=== PATIENT | female | born 1955 | race Caucasian/White ===

== ENCOUNTER → 2021-12-20 | Outpatient (CLI) | payer OTHER | END | disposition home or self-care (01) | LOC: RAH 10:54 | PROVIDERS: ATTEND Internal Medicine | DX: M47.817 Spondylosis without myelopathy or radiculopathy, lumbosacral region (principal); M48.07 Spinal stenosis, lumbosacral region; M41.85 Other forms of scoliosis, thoracolumbar region; G89.29 Other chronic pain; M54.50 Low back pain, unspecified | CPT/HCPCS: 72148 ==

== ENCOUNTER → 2023-06-27 | Outpatient (CLI) | payer OTHER ==
[~2023-06-27] MED LIST: levothyroxine PO
== END | disposition home or self-care (01) ==
LOC: RAH 12:24
PROVIDERS: ATTEND Anesthesiology
DX: M47.26 Other spondylosis with radiculopathy, lumbar region (principal); K57.30 Diverticulosis of large intestine without perforation or abscess without bleeding; M48.07 Spinal stenosis, lumbosacral region; Z91.81 History of falling
CPT/HCPCS: 72148; 72192

== ENCOUNTER 2024-05-17 06:32 | Observation (INO) | payer OTHER ==
[2024-05-14 12:12] LABS: BASOPHILS # (AUTO) 0.05 K/uL (0.00-0.20); BASOPHILS % (AUTO) 0.8 % (0.0-5.0); EOSINOPHILS # (AUTO) 0.07 K/uL (0.00-0.70); EOSINOPHILS % (AUTO) 1.1 % (0.0-8.0); HEMATOCRIT 43.1 % (36-48); IMMATURE GRANULOCYTE ABSOLUTE 0.01 K/uL (0-1); LYMPHOCYTES # (AUTO) 1.5 K/uL (1.0-4.8); LYMPHOCYTES % (AUTO) 22.6 % (21.0-51.0); MEAN CORPUSCULAR HGB CONC 32.9 g/dL (32.0-36.0); MEAN CORPUSCULAR VOLUME 94.1 fL (79-99); MONOCYTES # (AUTO) 0.5 K/uL (0.1-1.0); MONOCYTES % (AUTO) 7.1 % (3.0-13.0); NEUTROPHILS # (AUTO) 4.4 K/uL (1.8-7.7); NEUTROPHILS % (AUTO) 68.2 % (40.0-77.0); PLATELET COUNT (AUTO) 274 K/uL (130-400); RED BLOOD CELL COUNT(AUTO) 4.58 MIL/uL (4.00-5.50); RED CELL DISTRIBUTION WIDTH 14.8 % (11.0-15.5); WHITE BLOOD COUNT (AUTO) 6.5 K/uL (4.8-10.8)
[2024-05-14 12:17] VITALS: BP 135/74; PULSE 71; RESP 15; TEMP 97.7
[2024-05-14 12:24] LABS: CREATININE 0.7 mg/dL (0.5-1.0); POTASSIUM 4.1 mmol/L (3.5-5.1)
[2024-05-14 12:34] LABS: INR <= 0.93 (0.85-1.15); PROTHROMBIN TIME 9.9 SEC (9.6-11.6)
[~2024-05-17] VITALS: Ht 167.6 cm; Wt 70.0 kg
[2024-05-17] VITALS (23 sets, daily range): BP systolic 98–137; BP diastolic 45–71; PULSE 54–93; RESP 12–22; TEMP 96.9–99.1; O2SAT 96–98
[2024-05-17] MEDS: LACTATED RINGERS 1000ML 1,000 ML IV ONE (06:12)
[2024-05-17] MEDS: CLINDAMYCIN IVPB 900MG/50ML 0 ML IV ONE (06:12)
[~2024-05-17 06:32] MED LIST changes: +LEVO100T4 PO; -levothyroxine PO
[2024-05-17] MEDS ORDERED: LIDOCAINE PF 100MG/5ML (2%) SYRINGE 5ML ONE (08:09)
[2024-05-17] MEDS ORDERED: MIDAZOLAM HCL 1 MG/ML 2ML VIAL ONE (08:11)
[2024-05-17] MEDS ORDERED: rocuRONium bROMide 10MG/1ML 5ML VL ONE (08:11)
[2024-05-17] MEDS ORDERED: proPOFol 10 MG/ML 20ML VIAL IV ONE (08:11)
[2024-05-17] MEDS ORDERED: FENTanyl CITRate PF 50 MCG/1 ML 2ML VIAL ONE (08:11)
[2024-05-17] MEDS ORDERED: phenylEPHRINE HCL 10 MG/ML 1ML VIAL IV ONE (08:12)
[2024-05-17] MEDS: ceFAZolin SODIUM 2 GM VIAL ONE (08:30)
[2024-05-17] MEDS ORDERED: GLYCOPYRROLATE 0.2 MG/ML 5 ML VIAL ONE (09:04)
[2024-05-17] MEDS ORDERED: NEOSTIGMINE METHYLSULFATE 1MG/ML IV ONE (09:04)
[2024-05-17] MEDS ORDERED: ROPivacaine 0.5% 5MG/ML 30ML ONE (09:04)
[2024-05-17] MEDS: ceFAZolin SODIUM 1 GM VIAL ONE (09:34)
[2024-05-17] MEDS ORDERED: TEMAZepam 15 MG CAPSULE PO PRN (12:00)
[2024-05-17] MEDS: 0.9%NACL 1000ML 1,000 ML IV SCH (12:00)
[2024-05-17] MEDS ORDERED: ketOROlac 30MG VIAL (30MG/ML) IV PRN (12:00)
[2024-05-17] MEDS ORDERED: DiphenhydrAMINE HCL 50 MG/ML VIAL IVP PRN (12:00)
[2024-05-17] MEDS: PSYLLIUM SEED 1 EACH PACKET PO SCH (12:00)
[2024-05-17] MEDS ORDERED: CALCIUM CARB 500MG PO PRN (12:00)
[2024-05-17] MEDS ORDERED: ceFAZolin SODIUM 2 GM VIAL IVP SCH (12:00)
[2024-05-17] MEDS ORDERED: FERROUS FUMARATE 324 MG TABLET PO PRN (12:00)
[2024-05-17] MEDS: 0.9%NACL 1000ML 1,000 ML IV ONE (13:05)
--- NOTE | 2024-05-17 13:10 | NUR ---
PATIENT ARRIVED TO UNIT FROM OR. NO S/S OF DISTRESS NOTED. PATIENT RESTING COMFORTABLY WITH MINIMAL PAIN. SPOUSE AT BEDSIDE. POST OP LEFT HIP BRACE IN PLACE. DRESSING TO LEFT HIP CLEAN AND INTACT. BED IN LOWEST POSITION AND CALL LIGHT IN REACH
[2024-05-17] MEDS: ceFAZolin SODIUM 2 GM VIAL IVP SCH (16:26)
[2024-05-17] MEDS: HYDROcodone/APAP 5/325 1 TAB TABLET PO PRN (18:40)
[2024-05-17] MEDS: FAMOTIDINE 20MG TAB PO SCH (21:00)
[2024-05-17] MEDS: CeleCOXib 200 MG CAP PO SCH (21:12)
[2024-05-18 03:55] VITALS: BP 99/57; PULSE 79; RESP 16; TEMP 98.7
[2024-05-18 04:14] LABS: HEMATOCRIT 32.5 % (36-48); MEAN CORPUSCULAR HEMOGLOBIN 31.9 pg (27.0-33.0); MEAN CORPUSCULAR HGB CONC 33.8 g/dL (32.0-36.0); MEAN CORPUSCULAR VOLUME 94.2 fL (79-99); RED BLOOD CELL COUNT(AUTO) 3.45 MIL/uL (4.00-5.50); RED CELL DISTRIBUTION WIDTH 14.9 % (11.0-15.5); WHITE BLOOD COUNT (AUTO) 10.5 K/uL (4.8-10.8)
[2024-05-18 04:35] LABS: CREATININE 0.8 mg/dL (0.5-1.0); POTASSIUM 3.7 mmol/L (3.5-5.1)
[2024-05-18 08:00] VITALS: BP 100/58; PULSE 72; RESP 16; TEMP 98.4; O2SAT 96
[2024-05-18] MEDS: polyETHYLene GLYCol 3350 17 GM POWD.PACK PO SCH (09:00)
[2024-05-18] MEDS ORDERED: HYDR-4060 PO (10:20)
[2024-05-18] MEDS ORDERED: NAPR-1192 PO (10:20)
--- NOTE | 2024-05-18 10:30 | NUR ---
INITIAL/DCP Home w HH. Met w pt this am to discuss dcp. Pt lives at home w spouse. Prior to admission she was independent w ambulation and ADLs. She does not own any DME or receive services. Preferred pharmacy is [facility] in [place]. Discussed w pt Md order for HH/sw @ [facility]. CRISTY/PC obtained. Addendum: 05/18/24 at 1710 by DAYNA ARRIAGA CM Amended: Links added.
--- NOTE | 2024-05-18 10:30 | NUR ---
[facility]/DME Per Dr Alvarado pt will need [facility] and SW setup prior to dc. Met w pt this morning. Notified of above. CRISTY/PC obtained for [facility] and any in network DME. Referral/Orders faxed to [facility]. Adan orders faxed to [facility].
--- NOTE | 2024-05-18 10:57 | PN ---
Postop day 1. Status post left hip gluteus yasir transfer. Vital signs stable, afebrile. Lab reviewed. [id number] pain. Comfortable with the abductor brace. Awake, alert and oriented. The dressing is intact. Distal neurovascular exam normal. Mild edema of the thigh. Assessment: Status post left hip gluteus yasir transfer. Plan: The patient will continue with physical therapy today and she will be leaving this afternoon. Case management to arrange home health to start Monday. Vitals/Labs Vital Signs Date Time Temp Pulse Resp B/P (MAP) Pulse Ox O2 Delivery O2 Flow Rate FiO2 05/18/24 08:00 98.4 72 16 100/58 96 Room Air 05/17/24 21:15 0 21 Laboratory Tests 05/18/24 03:50 Medications Current Medications Clindamycin HCl/ Dextrose 0 ml @ As Directed STK-MED ONCE IV; Start 05/17/24 at 06:12; Stop 05/17/24 at 06:12; Status DC Lactated Ringer's 1,000 ml @ As Directed STK-MED ONCE IV; Start 05/17/24 at 06:12; Stop 05/17/24 at 06:12; Status DC Cefazolin Sodium 2 gm STK-MED ONCE .ROUTE Last administered on 05/17/24at 08:30; Start 05/17/24 at 08:09; Stop 05/17/24 at 08:09; Status DC Lidocaine HCl 100 mg STK-MED ONCE .ROUTE; Start 05/17/24 at 08:09; Stop 05/17/24 at 08:09; Status DC Fentanyl Citrate 100 mcg STK-MED ONCE .ROUTE; Start 05/17/24 at 08:11; Stop 05/17/24 at 08:11; Status DC Propofol 200 mg STK-MED ONCE IV; Start 05/17/24 at 08:11; Stop 05/17/24 at 08:11; Status DC Midazolam HCl 2 mg STK-MED ONCE .ROUTE; Start 05/17/24 at 08:11; Stop 05/17/24 at 08:11; Status DC Rocuronium Higgins 50 mg STK-MED ONCE .ROUTE; Start 05/17/24 at 08:11; Stop 05/17/24 at 08:11; Status DC Phenylephrine HCl 10 mg STK-MED ONCE IV; Start 05/17/24 at 08:12; Stop 05/17/24 at 08:13; Status DC Glycopyrrolate 1 mg STK-MED ONCE .ROUTE; Start 05/17/24 at 09:04; Stop 05/17/24 at 09:04; Status DC Neostigmine Methylsulfate 10 mg STK-MED ONCE IV; Start 05/17/24 at 09:04; Stop 05/17/24 at 09:05; Status DC Ropivacaine 150 mg STK-MED ONCE .ROUTE; Start 05/17/24 at 09:04; Stop 05/17/24 at 09:05; Status DC Cefazolin Sodium 1 gm STK-MED ONCE .ROUTE Last administered on 05/17/24at 09:34; Start 05/17/24 at 09:06; Stop 05/17/24 at 09:06; Status DC Sodium Chloride 1,000 ml @ 100 mls/hr Q10H IV Last administered on 05/18/24at 00:10; Start 05/17/24 at 12:00; Stop 05/18/24 at 11:59 Polyethylene Glycol 17 gm DAILY PO; Start 05/18/24 at 09:00; Stop 06/17/24 at 08:59 Psyllium Hydrophilic Mucilloid 1 tbs DAILYLUNCH PO; Start 05/17/24 at 12:00; Stop 06/16/24 at 11:59 Bisacodyl 10 mg DAILY PRN PO; Start 05/19/24 at 12:00; Stop 06/18/24 at 11:59 Bisacodyl 10 mg DAILY PRN RC; Start 05/20/24 at 12:00; Stop 06/19/24 at 11:59 Ketorolac Tromethamine 30 mg Q6H PRN IV; Start 05/17/24 at 12:00; Stop 05/22/24 at 11:59 Famotidine 20 mg BID PO; Start 05/17/24 at 21:00; Stop 06/16/24 at 20:59 Ferrous Fumarate 324 mg DAILY PRN PO; Start 05/17/24 at 12:00; Stop 06/16/24 at 11:59 Temazepam 15 mg HS PRN PO; Start 05/17/24 at 12:00; Stop 06/16/24 at 11:59 Calcium Carbonate 500 mg Q12H PRN PO; Start 05/17/24 at 12:00; Stop 06/16/24 at 11:59 Diphenhydramine HCl 25 mg Q6H PRN IVP; Start 05/17/24 at 12:00; Stop 06/16/24 at 11:59 Cefazolin Sodium 2 gm Q8H IVP; Start 05/17/24 at 12:00; Stop 05/17/24 at 13:06; Status DC Celecoxib 200 mg BID PO Last administered on 05/17/24at 21:12; Start 05/17/24 at 21:00; Stop 06/16/24 at 20:59 Acetaminophen/ Hydrocodone Bitart Q4H PRN PO Last administered on 05/18/24at 09:22; Start 05/17/24 at 12:00; Stop 05/22/24 at 11:59 Sodium Chloride 1,000 ml @ As Directed STK-MED ONCE IV; Start 05/17/24 at 12:37; Stop 05/17/24 at 12:38; Status DC Cefazolin Sodium 2 gm Q8H IVP Last administered on 05/18/24at 00:10; Start 05/17/24 at 16:30; Stop 05/18/24 at 00:31; Status DC MELVA HONG MD May 18, 2024 10:57
--- NOTE | 2024-05-18 11:41 | NUR ---
[facility] Per Sydnie sigala [facility] they are willing to accept pt for services. Nurse to call report to Zeenat @[phone]. Spoke w Malachi @ [facility] He mentions that order for walker will not be processed until Monday. Per Malachi if [facility] can loan pt a walker they will deliver it back to facility once they deliver pts walker. Primary nurse notified of above.
[2024-05-18 12:00] VITALS: BP 116/62; PULSE 71; RESP 18; TEMP 98.4
--- NOTE | 2024-05-18 14:23 | NUR ---
PATIENT D/C HOME.NO S/S OF DISTRESS NOTED. IV REMOVED. POST OP HIP BRACE IN PLACE. WALKER BORROWED UNTIL PATIENT'S ARRIVES AT HOME. PATIENT WHEELED DOWNSTAIRS AND TRANSFERRED TO PERSONAL VEHICLE.
--- NOTE | 2024-05-18 14:25 | NUR ---
REPORT CALLED TO CECILY AT PENDING SALE TO [facility]
--- NOTE | 2024-05-18 21:06 | OP ---
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 Trochanteric bursitis. 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 Abnormal gait and hip pain] PROCEDURE: [ Left hip trochanteric bursectomy, gluteus yasir tendon transfer to greater trochanter.] ESTIMATED BLOOD LOSS: [200 mL] INDICATIONS: [The patient is a very pleasant 69-year-old female with history of chronic pain to the left hip trochanteric area associated with the an abnormal gait. The patient complains of hip grinding which is also painful. Examination was very positive for a Trendelenburg gait, trochanteric bursitis, compatible with a gluteus medius chronic tear, which was confirmed by MRI. The patient was brought to the operating room for evaluation of her tear, possibility of repair and if not possibility of gluteus yasir transfer which was explained to her, as well as the risks, benefits and possible complications , the patient agreed to sign the consent form. she was able to bring an abductor brace with her which will be placed in case that the gluteus yasir transfer is performed] DESCRIPTION OF PROCEDURE: [After adequate general anesthesia was achieved in the operating room and a regional block was performed, the patient was position in the operative table in the right lateral decubitus, being held by a melvin bag. After prepping and draping of the left lower extremity previous rotation of the left foot that recently had toes surgery and still had stitches in place, we proceeded to pay attention to the lateral aspect of the hip. An incision centered on the greater trochanter of the left hip was then made in a curvilinear fashion extending posteriorly toward the PSIS through the skin followed by dissection of the subcutaneous tissue until the fascia of the gluteus and tensor fascia scar where identified. We proceeded to incise the fascia scar in the posterior border longitudinally proximally, exposing the greater trochanter which was noted to be completely bare of muscle. The bursal tissue was removed and exploration of the gluteus medius or minimus demonstrated that these were significantly contracted and atrophic. With the use of a clamp we grasped the distal end of the retracted gluteus medius and pull it distally and with the leg in significant abduction, the end of the muscle barely reached the tip of the trochanter. For this reason we proceeded with the gluteus yasir transferthis was achieved we then proceeded to make a cut through the anterior portion of the gluteus yasir to obtain a flap which was then from the rest of the muscle. We proceeded to pull it down to the greater trochanter and was noted to be long enough to cover this area and the proximal aspect of the vastus lateralis. At this point we proceeded to decorticate the lateral aspect of the greater trochanter with the use of an osteotome to split the proximal aspect of the vastus lateralis. After the wound was copiously irrigated with antibiotic solution, using the [employer] speed bridge anchor system we proceeded to place in the decorticated area the four anchors and we put two more anchors anteriorly and posteriorly in the middle of that zone. The graft as well as most of the gluteus yasir had a very thin fascia. We started with the proximal two anchors, by proceeding to place the sutures across the muscle flap and then we proceeded to tie the sutures in this location and separate them one to each side using a cross technique and the ends of the sutures were threaded into the distal two anchors that were placed within the holes completing the fixation of the graft in this area. We then proceeded to use the anterior and posterior anchors to reinforce the graft on the sides. Then the distal end was placed in the middle of the vastus lateralis and secured with #1 Ethibond sutures. The wound was copiously irrigated once again and we proceeded then to reapproximate the anterior border of the flap to the tensor fascia scar with 1. Vicryl cross stitches and the same was done posteriorly to the remaining of the gluteus yasir thin fascia. After once again the wound was copiously irrigated we proceeded to close the subcutaneous tissue with a approximation with two layers one deep with 1. Vicryl simple stitches and then a superficial with 2-0 Monocryl inverted stitches and the skin was then closed with the use of 3-0 Monocryl subcuticularly. The wound was covered with a suction dressing. At this time the patient was placed in the supine position and she was placed in an abductor brace with full range of motion in flexion and extension. There were no complications in the procedure. The patient was taken to recovery room after being awakened and extubated.] MELVA HONG MD May 18, 2024 21:06
[2024-05-19] MEDS ORDERED: BisaCODYL 5 MG TABLET.DR PO PRN (12:00)
[2024-05-20] MEDS ORDERED: BisaCODYL 10 MG SUPP.RECT RC PRN (12:00)
== END 2024-05-18 15:00 | disposition home health service (06) ==
LOC: DAH 06:32 → DAHIP 06:33 → 4DH 13:10
PROVIDERS: ADMIT Orthopaedic Surgery; ATTEND Orthopaedic Surgery
DX: S76.012A Strain of muscle, fascia and tendon of left hip, initial encounter (principal); G89.29 Other chronic pain; M70.62 Trochanteric bursitis, left hip; E03.9 Hypothyroidism, unspecified; R26.9 Unspecified abnormalities of gait and mobility; M54.16 Radiculopathy, lumbar region; X58.XXXA Exposure to other specified factors, initial encounter; Y93.89 Activity, other specified; Y92.89 Other specified places as the place of occurrence of the external cause; Z98.890 Other specified postprocedural states; Y99.8 Other external cause status; Z79.899 Other long term (current) drug therapy
CPT/HCPCS: 80048 ×2; 85025; 85610; 36415 ×2; 27062; 64483; 96365; 97161; 97530 ×5; 96366; 85027; 97116 ×2; G0378 ×24; C1713 ×2; A4663; J7030 ×2; J7120; J3010; J0690 ×4; J3490 ×2; J2003; J2250; J2704; J2710; J2795; J2371; A6223; A9272; A4930; A4215; A4223; A4222; A4221

== ENCOUNTER → 2024-07-23 | Outpatient (CLI) | payer OTHER ==
[~2024-07-23] MED LIST changes: +HYDR-4060 PO; +NAPR-1192 PO
--- NOTE | 2024-07-23 12:21 | HMCIMG ---
LUMBAR W FLEXION/EXTENSION REASON: STANDING FLEX, EXT ENTIRE SPINE 2/3 VW/PAIN IN SPINE. COMPARISON: None TECHNIQUE: 4 images of lumbar spine were obtained including flexion and extension views. FINDINGS: There is straightening of normal lordotic lumbar curvature which may be related to muscle spasm or position. There is dextroscoliosis of lumbar spine. No loss of vertebral is seen. Degenerative changes are seen with spondylosis. IMPRESSION: Findings as described above.
--- NOTE | 2024-07-23 12:22 | HMCIMG ---
THORACIC SPINE 2VWS HISTORY: Pain COMPARISON: None FINDINGS: 2 images of thoracic spine were obtained. There is levoscoliosis of thoracic spine. There are degenerative changes with spondylosis. There is straightening of normal lordotic curvature which may be related to muscle spasm or positioning. No loss of vertebral height is seen. No fracture or dislocation is seen. Degenerative changes are seen. IMPRESSION: 1. No fracture is seen. DJD.
--- NOTE | 2024-07-23 12:24 | HMCIMG ---
CERV SPINE 4-5 VWS REASON: STANDING FLEX, EXT ENTIRE SPINE 2/3 VW/PAIN IN SPINE. COMPARISON: None TECHNIQUE: 5 images of cervical spine were obtained including flexion and extension views. FINDINGS: There are degenerative changes of cervical spine with disc space narrowing at C5-6 level. There is spondylosis. No loss of vertebral height is seen. IMPRESSION: JILLIAN.
== END | disposition home or self-care (01) ==
LOC: RAH 10:31
PROVIDERS: ATTEND Physical Medicine & Rehabilitation
DX: M47.815 Spondylosis without myelopathy or radiculopathy, thoracolumbar region (principal); M47.812 Spondylosis without myelopathy or radiculopathy, cervical region; M48.02 Spinal stenosis, cervical region; M41.85 Other forms of scoliosis, thoracolumbar region; M21.70 Unequal limb length (acquired), unspecified site; Z96.642 Presence of left artificial hip joint; M54.2 Cervicalgia; M54.6 Pain in thoracic spine; M54.50 Low back pain, unspecified
CPT/HCPCS: 72050; 72070; 72114